=== PATIENT | male | born 1975 | race Caucasian/White ===

== ENCOUNTER 2021-04-30 09:00 | Emergency (ER) | payer BC, SELFPAY ==
[2021-04-30 09:07] VITALS: BP 154/98; PULSE 83; RESP 18; TEMP 36.1; O2SAT 97; BMI 32.1
[2021-04-30] MEDS: Fluorescein Sodium STRIP 1 STRIP EYE-BOTH (09:58)
[2021-04-30] MEDS: Tetracaine HCl/PF 0.5% Oph Sol 4 ML DROPS 2 DROP EYE-BOTH (09:58)
[2021-04-30] MEDS: Erythromycin Base 0.5% Oph Oin 1 GM TUBE 1 CM EYE-BOTH (09:59)
--- NOTE | 2021-04-30 10:48 | ED_ITS ---
HPI - Eye Problem General Chief complaint: Eye Problems Stated complaint: Metal in eye Time Seen by Provider: 04/30/21 09:53 Source: patient Mode of arrival: ambulatory Limitations: no limitations History of Present Illness chief complaint: foreign body Onset (ago): day(s) (3) Onset description: sudden Duration: constant Location: right eye Eye Symptoms: foreign body sensation Place: home Mechanism: occurred while hammering/grinding (Metal) Severity: mild If Pain, Quality: aching Context: trauma (While grinding metal at home) Associated symptoms: none Treatments Prior to Arrival: irrigated eye Related Data Patient tetanus UTD: Yes (In the last 3 years) Previous Rx's Medication Instructions Recorded erythromycin 5 mg/gram (0.5 %) eye 0.5 inch OPHTHALMIC (EYE) QID 7 04/30/21 ointment Days #3.5 g Allergies Allergy/AdvReac Type Severity Reaction Status Date / Time No Known Allergies Allergy Verified 04/30/21 09:10 [No Known Allergies*] Review of Systems Review of Systems: Constitutional : No fevers, no chills, No changes in activity, No lethargy, No recent prior head injury, No agitation, No increased fussiness ENT/Mouth : No Ear Pain, No Nasal discharge/drainage Eyes: + Vision changes/blurry/decreased vision, + Eye Pain/FB, + recent welding, No Swelling, No Redness, No Photophobia, no discharge, no drainage, no itching, no eyelid edema, no contact lens uses, no bleeding Cardiovascular : No Chest Pain, No SOB Respiratory : No Cough Gastrointestinal : No Nausea, No Vomiting, No abdominal Pain Genitourinary : No Dysuria, No Urinary Frequency, No Urinary Incontinence, No Urgency, No Flank Pain Musculoskeletal : No joint pain, No neck stiffness, No back pain/injury Skin : No lacerations Neuro : No unsteady gait, No Paresthesias, No Loss of Consciousness, No altered mental status, No dizziness, No Headache Denies past medical history of HIV, recent trauma, coagulopathy, recent spinal/ epidural procedure, new medication, URI symptoms, close contacts with similar symptoms, tick bite, or known CO2 exposure. Yes all other systems are reviewed and are negative PMFSH Past Medical History Attestation statement: The following information was validated with the patient. Medical History No known health problems Social History Social History Advance Directives: No Advance Directives Information Provided: Yes Physical Exam Vital Signs: Vital Signs: Last Vital Signs Temp 97.0 F 04/30/21 09:07 Pulse 83 04/30/21 09:07 Resp 18 04/30/21 09:07 BP 154/98 H 04/30/21 09:07 Pulse Ox 97 04/30/21 09:07 BMI result Body Mass Index 32.1 vital signs have been reviewed as normal and appeared to be correct. Blood pressure . Heart rate normal. Respiration rate normal. Temperature normal. Oxygen saturation normal. Appearance: Alert. Oriented X3. No acute distress. Head: Normal external exam. Normocephalic. Atraumatic. No Silverio signs noted. No raccoon eyes noted Eyes: PERRLA. EOMI. Conjunctiva are normal. pt noted to have a rust ring FB to right medial cornea. No additional FB's No drainage noted. Otherwise Cornea are otherwise normal. Funduscopic exam within normal limits. Sclera normal. Eyelids normal. No papilledema noted. Anterior chamber normal. No photophobia noted. ENT: EAC normal. TM's Normal. Pharynx normal. Uvula midline. Moist mucous membra vale. Neck: Normal inspection. Neck supple. FROM. No adenopathy. No meningeal signs. No neck mass noted. CVS: Normal heart rate and rhythm. Heart sound normal. No murmurs noted. Pulses normal throughout. Respiratory: No respiratory distress. Painless inspiration. Breath sounds normal. Back: Full range of motion noted. Skin: Skin warm and dry. Normal skin color. Normal skin turgor. No rashes /lesions/lacerations noted. Extremities: Extremities exhibit normal range of motion. Extremities nontender. Neuro: Oriented X 3. No motor deficit. No sensory deficit. Reflexes normal. Course Course Course Narrative: 46-year-old male presenting to the ED with complaints of piece of metal in his eye after he was grinding metal in his home on and since then he has been feeling like he has a foreign body and has had watery drainage. He reports that he is up-to-date on tetanus within the past 3 years he received it. He denies any other symptoms. He reports he was wearing shield. He denies wearing contact lenses. On exam he was noted to have a foreign body/rust ring to the right medial aspect of the cornea. It was visualized and removed with cotton swab/18 gauge needle. Patient tolerated procedure well. No complications. Complete removal. Erythromycin was applied. Instructed patient to follow-up with gastroenterology physician and to return if any new or worsening symptoms. MDM - Eye Problem Medical Records Attestation: I reviewed the patient's medical records. Procedures FB Removal Eye Time Out performed: Yes Location: eye (R) Topical anesthetic used: tetracaine Foreign body: metal Evidence of corneal penetration: No Technique: irrigation, cotton tip swab and needle Procedure performed under: direct visualization with magnification Post-procedure medication: ophthalmic antibiotic and topical anesthetic Patient tolerated procedure: well and no complications Complications: other (No complications) Discharge Plan Discharge Clinical Impression: Corneal rust ring of right eye, Foreign body in cornea, right eye, initial encounter Patient Disposition: Home, Self-Care Instructions: Eye Foreign Body (ED) Prescriptions: New erythromycin 5 mg/gram (0.5 %) ointment 0.5 inch ophthalmic (eye) QID 7 Days Qty: 3.5 RF: 0 Referrals: Michael Davis [Physician] - 2 days Print Language: [place] Islander
== END 2021-04-30 11:15 | disposition home or self-care (01) ==
PROVIDERS: Emergency Provider Internal Medicine
DX: T15.01XA Foreign body in cornea, right eye, initial encounter (principal); X58.XXXA Exposure to other specified factors, initial encounter; Y93.89 Activity, other specified; Y92.015 Private garage of single-family (private) house as the place of occurrence of the external cause; Y99.9 Unspecified external cause status
CPT/HCPCS: 65220; 99283; 99284

== ENCOUNTER 2021-08-17 19:03 | Emergency (ER) | payer BC, SELFPAY | END 2021-08-17 20:33 | disposition left against medical advice (07) | LOC: HO.ED 20:23 | PROVIDERS: Emergency Provider Emergency Medicine | DX: M79.671 Pain in right foot (principal) ==

== ENCOUNTER 2021-08-18 09:18 | Emergency (ER) | payer BC, SELFPAY ==
--- NOTE | ~2021-08-18 | XR_ITS ---
EXAMINATION: 1. RADIOGRAPHS RIGHT ANKLE 2. RADIOGRAPHS RIGHT FOOT CLINICAL INFORMATION: Pain and swelling COMPARISON: None TECHNIQUE: 3 views of the right ankle and 3 views of the right foot were obtained. FINDINGS: Visualized portion of the distal tibia and fibula demonstrate no fracture. Ankle mortise is maintained. No focal soft tissue swelling of the ankle. No gross ankle joint effusion. Bones of the midfoot are well aligned. No tarsal, metatarsal or phalangeal fracture. Tiny plantar calcaneal enthesophyte. No radiopaque foreign body. XR/XR ankle RT min 3V IMPRESSION: Unremarkable radiographs of the right ankle and foot.
--- NOTE | ~2021-08-18 | XR_ITS ---
EXAMINATION: 1. RADIOGRAPHS RIGHT ANKLE 2. RADIOGRAPHS RIGHT FOOT CLINICAL INFORMATION: Pain and swelling COMPARISON: None TECHNIQUE: 3 views of the right ankle and 3 views of the right foot were obtained. FINDINGS: Visualized portion of the distal tibia and fibula demonstrate no fracture. Ankle mortise is maintained. No focal soft tissue swelling of the ankle. No gross ankle joint effusion. Bones of the midfoot are well aligned. No tarsal, metatarsal or phalangeal fracture. Tiny plantar calcaneal enthesophyte. No radiopaque foreign body. XR/XR foot RT min 3V IMPRESSION: Unremarkable radiographs of the right ankle and foot.
[2021-08-18 09:38] VITALS: BP 128/62; PULSE 97; RESP 16; TEMP 36.7; O2SAT 98; BMI 32.5
--- NOTE | 2021-08-18 09:42 | ED_ITS ---
HPI - Extremity Injury (Lower) General Chief Complaint: Extremity Injury, Lower <Faiza ValenzuelaMOISES simental - Last Filed: 08/18/21 17:01> Stated Complaint: r ankle pain no known inj <Faiza Owusu MOISES Jacob - Last Filed: 08/18/21 17:01> Time Seen by Provider: 08/18/21 09:42 <Faiza Francoiseleah Jacob CNP - Last Filed: 08/18/21 17:01> Source: patient <Faiza JacobMOISES - Last Filed: 08/18/21 17:01> Mode of arrival: ambulatory <Faiza Owusu MOISES Jacob - Last Filed: 08/18/21 17:01> Limitations: no limitations <Faiza Owusu MOISES Jacob - Last Filed: 08/18/21 17:01> History of Present Illness HPI Narrative: Patient presents to the emergency department for evaluation of right ankle pain. Patient reports that 3 days ago when getting off of the couch she stepped down and felt a crack to his right ankle but thought nothing of it. 2 days ago he went to work, does a lot of walking, and began to notice some discomfort to his right ankle. Yesterday he was sent home from work as he was unable to bear much weight, was limping a lot. In having a lot of pain with weight-bearing. He presents to the emergency department today with crutches reporting worsening pain when weight-bearing, and swelling. He reports that he has broken this an kle/foot at least 3 times in the past. He states that there is no pain when he is not moving his ankle bearing weight. Denies numbness or tingling, redness, warmth, pain to the right calf or leg. He has been taking Aleve which she feels has been helping with the swelling in addition to elevation. <Faiza Owusu MOISES Jacob - Last Filed: 08/18/21 17:01> Related Data Home Medications: Previous Rx's Medication Instructions Recorded erythromycin 5 mg/gram (0.5 %) eye 0.5 inch OPHTHALMIC (EYE) QID 7 04/30/21 ointment Days #3.5 g <Faizasandra Jacob CNP - Last Filed: 08/18/21 17:01> Allergies/Adverse Reactions: Allergies Allergy/AdvReac Type Severity Reaction Status Date / Time No Known Allergies Allergy Verified 04/30/21 09:10 [No Known Allergies*] <Faiza Jacob CNP - Last Filed: 08/18/21 17:01> Review of Systems Review of Systems: Constitutional: No weight loss, fever, chills, weakness or fatigue. Skin: No rash or itching. Cardiovascular: No chest pain, chest pressure or chest discomfort. No palpitations or pedal edema. Respiratory: No shortness of breath, cough or sputum production. Musculoskeletal: Positive right ankle pain <Faiza Jacob CNP - Last Filed: 08/18/21 17:01> Yes all other systems are reviewed and are negative <Faiza Jacob CNP - Last Filed: 08/18/21 17:01> [facility] Past Medical History Attestation statement: The following information was validated with the patient. <Faiza Jacob CNP - Last Filed: 08/18/21 17:01> Source: old records reviewed <Faiza Jacob CNP - Last Filed: 08/18/21 17:01> Medical History: Medical History Cellulitis No known health problems <Faiza Jacob CNP - Last Filed: 08/18/21 17:01> Social History Social History: Social History Advance Directives: Yes Advance Directives Information Provided: Yes Advance Directives on File: No <Faiza Jacob CNP - Last Filed: 08/18/21 17:01> Physical Exam Vital Signs: Vital Signs: Last Vital Signs Temp 98.0 F 08/18/21 09:38 Pulse 97 08/18/21 09:38 Resp 16 08/18/21 09:38 BP 128/62 08/18/21 09:38 Pulse Ox 98 08/18/21 09:38 BMI result Body Mass Index 32.5 Vital signs have been reviewed as normal and appeared to be correct. Blood pressure normal.? Heart rate normal.? Respiration rate normal. Temperature normal.? Oxygen saturation normal. <Faiza Jacob CNP - Last Filed: 08/18/21 17:01> Appearance: Alert.?Oriented to person, place and time. No acute distress.?Normal affect. Eyes: Pupils equal, round and reactive to light.? ENT: Pharynx normal.?? Neck: Normal inspection.? Neck supple.?? CVS: Heart sounds normal. Normal heart rate and rhythm.? Pulses normal.?? Respiratory: No respiratory distress.? Lung sounds clear to auscultation bilaterally?? Abdomen: Right medial malleolus swelling greater than lateral malleolus swelling. Diffuse swelling to the right foot. Palpable 2+ DP/PT pulse. No erythema, warmth, tenderness with palpation. Decreased dorsiflexion and plantar flexion of the ankle reportedly due to pain. No calf ttp? Neuro: Moves all extremities spontaneously. Sensation intact bilaterally. CN II- XII intact. No focal neuro deficits. Ambulates with antalgic gait <Faiza Jacob CNP - Last Filed: 08/18/21 17:01> Course Course Course Narrative: Patient is a 46-year-old male with a past medical history of cellulitis to the right extremity presenting for evaluation of right ankle pain with weight-be aring and swelling without notable significant injury. Plan to obtain XR ankle and foot to evaluate for fracture or dislocation <Faiza Jacob CNP - Last Filed: 08/18/21 17:01> Reevaluation(s) Reevaluation #1: XR reveals no acute fracture dislocation to the right ankle or foot. Without notable injury or precipitating event, discussed plan with patient to obtain ultrasound of the lower extremity to exclude DVT, Well's score 1 given edema to the RLE, however patient declines having ultrasound done at this time. Discussed risks and potential complications of undiagnosed DVT including PE potentially life-threatening complications. Patient verbalizes understanding of this. History and physical exam consistent with cellulitis, septic arthritis, effusion. Pain with weight-bearing swelling maybe secondary to DVT, acute sprain, or possible arthritis. Will provide air cast for comfort, return to work note, advised RICE and NSAIDs, and follow-up with primary care provider within 1-3 days, discussed reasons to return back to emergency department, all questions were answered and patient discharged home. <Faiza Jacob CNP - Last Filed: 08/18/21 17:01> Time: 11:17 <Faiza Jacob MOISES - Last Filed: 08/18/21 17:01> MDM - Extremity Injury (Lower) Medical Records Attestation: I reviewed the patient's medical records. <Faiza JacobMOISES - Last Filed: 08/18/21 17:01> Imaging Data XR right ankle/foot: Radiologist's impression: FINDINGS: Visualized portion of the distal tibia and fibula demonstrate no fracture. Ankle mortise is maintained. No focal soft tissue swelling of the ankle. No gross ankle joint effusion. Bones of the midfoot are well aligned. No tarsal, metatarsal or phalangeal fracture. Tiny plantar calcaneal enthesophyte. No radiopaque foreign body.? XR/XR ankle RT min 3V IMPRESSION: Unremarkable radiographs of the right ankle and foot.? <Faiza ValenzuelaMOISES simental - Last Filed: 08/18/21 17:01> Discharge Plan Discharge Clinical Impression: Ankle pain, right <Faiza JacobMOISES - Last Filed: 08/18/21 17:01> Patient Disposition: Home, Self-Care <Faiza JacobMOISES - Last Filed: 08/18/21 17:01> Instructions: Arthralgia (ED), R.I.C.E. Treatment (ED) <Faiza ValenzuelaMOISES simental - Last Filed: 08/18/21 17:01> Additional Instructions: As we discussed it is unclear the exact cause of your ankle pain at this time. He was offered an ultrasound to check for a blood clot but you declined to have this done. You may use the Aircast as needed for comfort in addition to crutches. Please return to the emergency department with any new or worsening symptoms or concerns such as severe worsening pain/swelling, if you develop redness to the leg, chest pain, palpitations, shortness of breath, difficulty breathing, lightheadedness, dizziness. Please contact your primary care provider to schedule follow-up visit within 1-3 days. <Faiza Gilmoreleah Jacob CNP - Last Filed: 08/18/21 17:01> Prescriptions: No Action erythromycin 5 mg/gram (0.5 %) ointment 0.5 inch ophthalmic (eye) QID 7 Days Qty: 3.5 0RF <Faiza Jacob CNP - Last Filed: 08/18/21 17:01> Stand Alone Forms: Work/School Release <Faiza Jacob CNP - Last Filed: 08/18/21 17:01> Interventions: ED Discharge Assessment Last Done: 08/18/21 12:02 <Faiza Jacob CNP - Last Filed: 08/18/21 17:01> Discharge Date/Time: 08/18/21 12:04 <Faiza Jacob CNP - Last Filed: 08/18/21 17:01>
== END 2021-08-18 12:04 | disposition home or self-care (01) ==
PROVIDERS: Emergency Provider Emergency Medicine
DX: M25.571 Pain in right ankle and joints of right foot (principal); M79.671 Pain in right foot
CPT/HCPCS: 73610; 73630; 99283; 99284

== ENCOUNTER 2023-11-16 07:52 | Emergency (ER) | payer BC, SELFPAY ==
--- NOTE | ~2023-11-16 | XR_ITS ---
EXAMINATION: XR KNEE, LEFT CLINICAL INFORMATION: Pain and swelling COMPARISON: None available. TECHNIQUE: Four views of the left knee. FINDINGS: No fracture or dislocation. Moderate to large suprapatellar joint effusion. Joint spaces are maintained. No significant degenerative changes. No localized soft tissue swelling. No radiopaque foreign body. XR/XR knee LT 3V IMPRESSION: Moderate to large suprapatellar joint effusion. No fracture.
[2023-11-16 08:00] VITALS: BP 148/92; PULSE 105; RESP 18; TEMP 36.7; O2SAT 96; BMI 33.7
--- NOTE | 2023-11-16 09:38 | ED_ITS ---
HPI - Extremity Injury (Lower) General Chief Complaint: Extremity Injury, Lower Stated Complaint: L knee pain, no injury Time Seen by Provider: 11/16/23 09:05 Source: patient Mode of arrival: ambulatory Limitations: no limitations History of Present Illness ED Provider: Jasmyne Fraser APRN HPI Narrative: This is 48-year-old male who has no known medical history however he has not seen a doctor in more than 8 years who presents the ER with complaints of left knee pain and swelling since yesterday with waking. He denies any known injury or trauma. Patient reports that he has had history of swollen and painful joints in the past which have resolved without intervention. Has been taking naproxen and applying ice as well as using crutches. He denies any warmth, redness, fevers or chills. Related Data Previous Rx's ?Medication ?Instructions ?Recorded erythromycin 5 mg/gram (0.5 %) eye 0.5 inch ophthalmic (eye) QID 04/30/21 ointment Bacterial conjunctivitis 7 days #3.5 grams allopurinol 100 mg tablet 100 mg PO DAILY #30 tabs 11/16/23 prednisone 20 mg tablet 40 mg (2 x 20 mg) PO DAILY #10 tabs 11/16/23 Allergies Allergy/AdvReac Type Severity Reaction Status Date / Time No Known Allergies Allergy Verified 11/16/23 08:04 [No Known Allergies*] Review of Systems 2 Review of Systems: Yes all other systems are reviewed and are negative Constitutional: Constitutional: Reports no additional constitutional complaints, Denies body ache(s), Denies chills, Denies fever(s), Denies headache(s) and Denies weakness Eyes: Eyes: Reports no additional eye complaints and Denies change in vision ENT: Reports system reviewed and no additional complaints, except as documented, Denies dizziness, Denies headache(s), Denies nasal congestion, Denies nasal discharge and Denies neck pain Cardiovascular: Cardiovascular: Reports no additional cardiovascular complaints, Denies chest pain, Denies leg edema and Denies dyspnea Respiratory: Respiratory: Reports no additional respiratory complaints, Denies cough and Denies dyspnea Gastrointestinal: Gastrointestinal: Reports no additional gastrointestinal complaints, Denies abdominal pain, Denies diarrhea, Denies nausea and Denies vomiting Genitourinary: Genitourinary: Denies urinary incontinence Musculoskeletal: Musculoskeletal: Reports no additional musculoskeletal complaints, Denies back pain, Reports arthralgias, Reports joint swelling, Reports limited range of motion, Denies neck pain, Denies numbness and Denies tingling Integumentary/Breasts: Skin/Breast: Reports system reviewed and no additional complaints, except as docu and Denies rash Neurologic: Reports system reviewed and no additional complaints, except as documented, Denies Abnormal speech present, Denies dizziness, Denies headache(s), Denies numbness, Denies tingling and Denies weakness PMFSH Past Medical History Attestation statement: The following information was validated with the patient. Source: old records reviewed and nursing notes reviewed Medical History Cellulitis No known health problems Social History Social History Advance Directives: No Advance Directives Information Provided: No Do you have a plan to hurt others: No Plan Physical Exam 2 Vital Signs: Vital Signs: Last Vital Signs Temp 98.7 F 11/16/23 12:41 Pulse 77 11/16/23 12:41 Resp 17 11/16/23 12:41 BP 133/91 H 11/16/23 12:41 Pulse Ox 95 11/16/23 12:41 O2 Del Method Room Air 11/16/23 12:41 BMI result Body Mass Index 33.7 Const: General: cooperative, healthy appearing, comfortable and no acute distress Orientation/consciousness: patient oriented x3 Limitations: no limitations HEENT: Head: Yes normal to inspection Ears: hearing grossly normal bilaterally General nose exam: Normal external nose present Face and sinus: Yes normal facial exam Mouth: Normal oral and palatal mucosa present Throat: Yes posterior oropharynx normal Eyes: General: appearance normal, both eyes and all related structures P upils: Equal, round and reactive pupils present Neck: Neck: Yes normal visual inspection Chest: Chest palpation & inspection: normal inspection of the chest Resp: Effort & Inspection: normal respiratory effort Auscultation: clear to auscultation bilaterally Cardio: Rate: regular rate Rhythm: regular rhythm Peripheral pulses: P eripheral pulses 2+ throughout GI: Inspection: Yes normal to inspection Palpation (GI): Soft to palpation and nontender Auscultation: normal bowel sounds Back/Spine/Pelvis: Thoracic/Lumbar Spine: thoracic and lumbar spine normal to inspection Skin: General skin exam: no rashes or lesions noted Neuro: General: patient oriented x3, no focal motor deficits and normal sensation to monofilament Cranial nerves: Yes Equal, round and reactive pupils present Cognition (Neuro): normal cognition Speech: No Abnormal speech present Gait exam (Neuro): Normal gait present Motor exam (neuro): 5/5 motor strength present throughout Extrem: Other: Left knee is moderately swollen, held in partial extension. Unable to full extend the knee. Able to flex the knee. There is NO warmth or redness. Tenderness diffusely over knee anteriorly and posteriorly. No calf pain or swelling. 2+ DP/PT pulses. Normal distal sensation. Course Course Course Narrative: Patient has leukocytosis of 13,000 and a CRP of 14. His synovial some WBC is 99.96 and his neutrophils are 97 and so it may be that he has an infected joint however this can also be seen in gout. His Gram stain and crystals are pending. I will involve Orthopedics Reevaluation(s) Reevaluation #1: 1230-patient has 2+ interested your monosodium urate crystals. No organisms seen on Gram stain. His culture is pending. Likely gout flare. Patient will be treated with prednisone course and NSAIDs at home. I reviewed worrisome signs and symptoms with him and when to return to the emergency room. He is comfortable plan of care. He will work on establishing a primary care doctor as he likely will need to follow-up with them. Medications Administered Discontinued Medications Generic Name Dose Route Start Last Admin Trade Name Lon PRN Reason Stop Dose Admin Lidocaine HCl 2 ml 11/16/23 09:47 11/16/23 10:28 Lidocaine Hcl 1 % Mpf 2 Ml Vial INFILTRATI 11/16/23 09:48 2 ml ONCE ONE Administration Lidocaine HCl 2 ml 11/16/23 09:47 11/16/23 10:28 Lidocaine Hcl 1 % Mpf 2 Ml Vial INFILTRATI 11/16/23 09:48 2 ml ONCE ONE Administration Medical Decision Making Medical Decision Making MDM Narrative: This is 48-year-old male who has no known medical history however he has not seen a doctor in more than 8 years who presents the ER with complaints of left knee pain and swelling since yesterday with waking. He denies any known injury or trauma. Patient reports that he has had history of swollen and painful joints in the past which have resolved without intervention. Has been taking naproxen and applying ice as well as using crutches. He denies any warmth, redness, fevers or chills. Left knee is moderately swollen, held in partial extension. Unable to full extend the knee. Able to flex the knee. There is NO warmth or redness. Tenderness diffusely over knee anteriorly and posteriorly. No calf pain or swelling. 2+ DP/PT pulses. Normal distal sensation. Will obtain x-ray, labs, perform arthrocentesis Differential Diagnosis Differential Diagnoses: The differential diagnosis associated with the presentation includes Gout, septic joint, arthritis Low suspician for DVT Admission/Observation Consideration of admission/observation: Escalation of care including admission/observation considered See course of care Consult Healthcare Provider Management of the patient was discussed with: Supervisor Glycerin I reviewed the case with Orthopedics on-call (Kanika MCBRIDE)-likely gout Lab Data MDM Lab Attestation statement: I reviewed the patient's lab results. 11/16/23 10:52 11/16/23 10:51 Labs: Lab Results 11/16/23 11/16/23 11/16/23 Range/Units 10:44 10:51 10:52 WBC 13.0 H (4.8-10.8) X10*3/uL RBC 4.52 L (4.60-5.80) X10*6/uL Hgb 14.4 (14.0-18.0) g/dl Hct 41.0 L (42.0-52.0) % MCV 90.7 (80.0-98.0) fL MCH 31.9 (27.0-33.0) pg MCHC 35.1 (31.0-36.0) g/dl RDW 12.0 (11.0-16.0) % Plt Count 174 (160-400) X10*3/uL MPV 10.6 (9.4-12.4) fL Immature Gran % (Auto) 0.4 (0.0-0.4) % Neut % (Auto) 65.6 (45-73) % Lymph % (Auto) 19.9 L (20-40) % [place] % (Auto) 13.7 H (2-11) % Eos % (Auto) 0.2 (0-4) % Baso % (Auto) 0.2 (0-2) % Lymph # (Auto) 2.6 (1.2-4.9) X10*3/uL [place] # (Auto) 1.8 H (0.1-1.2) X10*3/uL Eos # (Auto) 0.0 (0.0-0.4) X10*3/uL Baso # (Auto) 0.0 (0.0-0.2) X10*3/uL Abs Immat Gran (auto) 0.05 H (0.00-0.03) X10*3/uL Absolute Neuts (auto) 8.5 H (2.0-8.3) x10*3/uL Absolute Nucleated RBC 0.000 (0.0-0.012) X10*3/uL Nucleated RBC % (auto) 0.0 (0.0-0.2) /100WBC Smear Tech's Comments VERIFIED ESR 12 (0-15) MM/HR Sodium 140 (135-145) mmol/L Potassium 4.0 (3.3-5.1) mmol/L Chloride 106 (96-108) mmol/L Carbon Dioxide 24 (22-29) mmol/L Anion Gap 14 (12-20) BUN 8 L (9-16) mg/dL Creatinine 0.81 (0.5-1.4) mg/dL Estim Creat Clear Calc 111.0 Estimated GFR > 60 Random Glucose 125 H (60-115) mg/dL Uric Acid 9.5 H (3.4-7.0) mg/dL Calcium 9.6 (8.4-10.2) mg/dL C-Reactive Protein 14.26 H (< or = 0.50) mg/dL Synovial Source knee Synovial WBC 99.960 X10*3/uL Synovial RBC 0.002 X10*6/uL Synovial Neutrophils 97 % Synovial Lymphocytes 1 % Synovial Monocytes 2 % Independent Interpretation I performed an independent interpretation of an: Plain X-Ray Interpretation: I independently reviewed the x-ray and agree with rad report Radiology Impression Discussion of test interpretation with radiology: I have reviewed the radiologist's reading. Radiologist Impression: [address] [address] XRay Report Signed Patient: Paddy Shelby MR#: [id number] : 1975 Acct:[id number] Age/Sex: 48 / M ADM Date: 11/16/23 Loc: HO.ED Attending Dr: Ordering Physician: Jasmyne Skinner NP Date of Service: 11/16/23 Procedure(s): XR knee LT 3V Accession Number(s): [id number] cc: Physician,None ; Jasmyne Skinner NP~ EXAMINATION: XR KNEE, LEFT CLINICAL INFORMATION: Pain and swelling COMPARISON: None available. TECHNIQUE: Four views of the left knee. FINDINGS: No fracture or dislocation. Moderate to large suprapatellar joint effusion. Joint spaces are maintained. No significant degenerative changes. No localized soft tissue swelling. No radiopaque foreign body. XR/XR knee LT 3V IMPRESSION: Moderate to large suprapatellar joint effusion. No fracture. Prescription Management I considered prescription management with: Antibiotic Procedures Joint Aspiration/Injection Joint Asp./Inject. 1: Time Out Performed: Yes Side of body: left Joint Aspirated: knee Ultrasound Guidance: No Skin Prep: sterile prep and drape Local Anesthetic: lidocaine 1% Amount of anesthesia used (mL): 3 Needle Size Used: 18G Fluid Obtained: turbid Total fluid obtained (mL): 40 Patient Tolerated Procedure: well Complications: none Critical Care Time Critical Care Time Critical Care Time: Yes Total Critical Care Time: 45 Attestation: Patient required arthrocentesis, discussion with Orthopedics Discharge Plan Discharge Clinical Impression: Gout Patient Disposition: Home, Self-Care Instructions: Low Purine Diet (ED), Gout (ED) Additional Instructions: Use the hamilton wrap and crutches Ice to the area Take prednisone as prescribed. You may also take [id number] anti- inflammatory medication like ibuprofen or naproxen. Make sure that you take these with food. Start taking the allopurinol after this gout flare is resolved You need to establish a primary care doctor. Please return for fever, redness, change in symptoms as discussed Prescriptions: New allopurinol 100 mg tablet 100 mg PO DAILY Qty: 30 0RF prednisone 20 mg tablet 40 mg PO DAILY Qty: 10 0RF No Action erythromycin 5 mg/gram (0.5 %) ointment 0.5 inch ophthalmic (eye) QID 7 Days Qty: 3.5 0RF Interventions: ED Discharge Assessment Last Done: 11/16/23 12:41 Discharge Date/Time: 11/16/23 12:41 Print Language: Botswanan
[2023-11-16] MEDS: Lidocaine HCl 1 % MPF 2 ML VIAL INFILTRATI ×2 (10:28)
[2023-11-16 10:51] LABS: Source Synovial Fluid knee
[2023-11-16 10:59] LABS: Basophils Percent Auto 0.2 % (0-2); Eosinophils Percent Auto 0.2 % (0-4); Hemoglobin 14.4 g/dl (14.0-18.0); Imm Gran Abs Auto 0.05 X10*3/uL (0.00-0.03); Imm Gran Pct Auto 0.4 % (0.0-0.4); Lymphocytes Absolute Auto 2.6 X10*3/uL (1.2-4.9); Lymphocytes Percent Auto 19.9 % (20-40); MANUAL DIFF FLAG SCAN; Mean Corpuscular HGB Conc 35.1 g/dl (31.0-36.0); Mean Corpuscular Hemoglobin 31.9 pg (27.0-33.0); Mean Corpuscular Volume 90.7 fL (80.0-98.0); Mean Platelet Volume 10.6 fL (9.4-12.4); Monocytes Absolute Auto 1.8 X10*3/uL (0.1-1.2); Monocytes Percent Auto 13.7 % (2-11); Neutrophils Absolute Auto 8.5 x10*3/uL (2.0-8.3); Neutrophils Percent Auto 65.6 % (45-73); Platelet Count 174 X10*3/uL (160-400); Red Blood Count 4.52 X10*6/uL (4.60-5.80); SCAN SMEAR FLAG 1
[2023-11-16 11:10] LABS: MN% 5.9 %; PMN% 94.1 %; RBC Synovial Fluid 0.002 X10*6/uL
[2023-11-16 11:15] LABS: Anion Gap 14 (12-20); Blood Urea Nitrogen 8 mg/dL (9-16); C Reactive Protein 14.26 mg/dL (< or = 0.50); Calcium 9.6 mg/dL (8.4-10.2); Carbon Dioxide 24 mmol/L (22-29); Chloride 106 mmol/L (96-108); Estimated Glomerular Filt Rate > 60; Glucose Random 125 mg/dL (60-115); Sodium 140 mmol/L (135-145); Uric Acid 9.5 mg/dL (3.4-7.0)
[2023-11-16 11:19] LABS: SLIDE REVIEW VERIFIED
[2023-11-16 11:26] VITALS: BP 133/91; PULSE 77; RESP 17; TEMP 37.1; O2SAT 95
[2023-11-16 11:27] LABS: BF Shift QC OK YES; Man Diluent Bkgrd OK YES; Monocytes Synovial Fluid 2 %
[2023-11-16 11:28] LABS: Lymphocytes Synovial Fluid 1 %; Neutrophils Synovial Fluid 97 %
[2023-11-16 11:43] LABS: Erythrocyte Sedimentation Rate 12 MM/HR (0-15)
[2023-11-16 12:41] VITALS: BP 133/91; PULSE 77; RESP 17; TEMP 37.1; O2SAT 95
[2023-11-18 08:42] LABS: Glucose Synovial Fluid 29
[2023-11-18 08:43] LABS: Total Protein Synovial Fluid 4.8
== END 2023-11-16 12:41 | disposition home or self-care (01) ==
PROVIDERS: Nurse Practitioner Family; Emergency Provider Emergency Medicine
DX: M10.9 Gout, unspecified (principal); M25.462 Effusion, left knee; M25.562 Pain in left knee
CPT/HCPCS: 20610; 36415; 73562; 80048; 82945; 84157; 84550; 85025; 85652; 86140; 87070; 87073; 87205; 89051; 89060; 99284; 99285

== ENCOUNTER 2023-12-26 11:31 | Emergency (ER) | payer BC, SELFPAY ==
[2023-12-26 11:40] VITALS: BP 151/104; PULSE 90; RESP 18; TEMP 36.6; O2SAT 97; BMI 34.4
--- NOTE | 2023-12-26 11:40 | ED_ITS ---
HPI - Extremity Problem General Chief complaint: Extremity Injury, Lower Stated complaint: l knee pain-swelling Time Seen by Provider: 12/26/23 11:53 Source: patient Mode of arrival: ambulatory Limitations: no limitations History of Present Illness ED Provider: Pito Carrillo PA-C HPI Narrative: 48 yo male with history of recently diagnosed left knee pain s/p treatment with prednisone, now on allopurinol who presents to the ER for evaluation of worsening left knee pain that started at 3am. He was seen here on 11/15 and had an arthrocentesis, had positive monosodium urate crystal and a negative culture. He was treated with 4 days of prednisone with some improvement but not full resolution of the pain. 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 Yesterday it started to get more sore than usual. Extreme pain with ROM and weight bearing today. Knee is hot but not red. No fevers. No recent injury. He has been on allopurinol at increased dose due to ongoing elevated uric acid levels in his blood per his PCP. MD Complaint: joint swelling and joint pain Onset (ago): hour(s) Pain Consistency: constant Location: left and knee Severity scale (1-10): 10 Radiation: none Relieving factors: immobilization and rest Exacerbating factors: range of motion, weight bearing and walking Associated symptoms: denies other symptoms Related Data Previous Rx's ?Medication ?Instructions ?Recorded erythromycin 5 mg/gram (0.5 %) eye 0.5 inch ophthalmic (eye) QID 04/30/21 ointment Bacterial conjunctivitis 7 days #3.5 grams allopurinol 100 mg tablet 100 mg PO DAILY #30 tabs 11/16/23 prednisone 20 mg tablet 40 mg (2 x 20 mg) PO DAILY #10 tabs 11/16/23 prednisone 10 mg tablets in a dose See Taper PO DAILY #30 ea 12/26/23 pack Allergies Allergy/AdvReac Type Severity Reaction Status Date / Time No Known Allergies Allergy Verified 12/26/23 11:44 [No Known Allergies*] Review of Systems Review of Systems: Yes all other systems are reviewed and are negative PMFSH Past Medical History Medical History Cellulitis No known health problems Social History Social History Advance Directives: No Do you have a plan to hurt others: No Plan Physical Exam Vital Signs: Vital Signs: Last Vital Signs Temp 97.8 F 12/26/23 11:59 Pulse 90 12/26/23 11:59 Resp 18 12/26/23 11:59 BP 151/104 H 12/26/23 11:59 Pulse Ox 97 12/26/23 11:59 O2 Del Method Room Air 12/26/23 11:59 BMI result Body Mass Index 34.4 Appearance: Alert. Oriented X3. No acute distress. HEENT: normal inspection CVS: Normal heart rate and rhythm. Pulses normal. Respiratory: No respiratory distress. Skin: Skin warm and dry. Normal skin color. Normal skin turgor. No rashes. Extremities: left knee swelling in the suprapatellar region w/ palpable effusion, left knee is warm bnut not erythemtaous, nontender. very limited ROM and unable to bear weight. nontender popliteal area and left calf. Neuro: Oriented X 3. No motor deficit. No sensory deficit. Medications Administered Discontinued Medications Generic Name Dose Route Start Last Admin Trade Name Freq PRN Reason Stop Dose Admin Ketorolac Tromethamine 30 mg 12/26/23 11:48 12/26/23 11:53 Ketorolac Tromethamine 30 Mg/Ml Vial IM 12/26/23 11:49 30 mg ONCE ONE Administration Prednisone 60 mg 12/26/23 11:48 12/26/23 11:52 Prednisone 20 Mg Tablet PO 12/26/23 11:49 60 mg ONCE ONE Administration Medical Decision Making Medical Decision Making MDM Narrative: 48 yo male with confirmed gout on arthrocentesis on 11/15 presenting with recurrent severe left knee pain and swelling, unable to bear weight since today no recent injury. no need for repeat imaging today. exam with swelling and warmth, no erythema. doubt acute septic joint. no role for repeat arthrocentesis given risk of infection with repeated taps. will start on prednisone with a tapering dose. will refer to ortho and he will see his PCP in the next 2 weeks. stable for d/c home Differential Diagnosis Differential Diagnoses: The differential diagnosis associated with the presentation includes gout, septic joint, AO, RA External Record Review External record reviewed: Outpatient record, Prior outpatient labs and Prior outpatient radiology Tests considered The following testing was considered but not selected: xr knee considered Prescription Management I considered prescription management with: Pain Medication and Antibiotic Chronic Conditions Patient?s care impacted by: Other (gout) Critical Care Time Critical Care Time Critical Care Time: No Discharge Plan Discharge Clinical Impression: Gout Qualifiers: Gout site: knee Gout etiology: unspecified cause Chronicity: acute Laterality: left Qualified Code(s): M10.9 - Gout, unspecified Patient Disposition: Home, Self-Care Instructions: Low Purine Diet (ED), Gout (ED) Additional Instructions: take the prescribed prednisone taper starting tomorrow follow up with your doctor recommend following up with orthopedics as well - call for an appointment. If you develop new or worsening symptoms call 911 or come back to the ER for further evaluation. Prescriptions: New prednisone 10 mg tablets,dose pack See Taper PO DAILY Qty: 30 0RF Taper: Prednisone 40 mg daily for 3 Days and 0 Hour 30 mg daily for 3 Days and 0 Hour 20 mg daily for 3 Days and 0 Hour 10 mg daily for 3 Days and 0 Hour Rx Instructions: 40 mg Daily x3 days, 30 mg daily x3 days, 20 mg daily x3 days, 10 mg daily x3 days No Action erythromycin 5 mg/gram (0.5 %) ointment 0.5 inch ophthalmic (eye) QID 7 Days Qty: 3.5 0RF allopurinol 100 mg tablet 100 mg PO DAILY Qty: 30 0RF prednisone 20 mg tablet 40 mg PO DAILY Qty: 10 0RF Referrals: [facility] [place] [facility] [place] [facility] [Provider Group] (recurrent left knee gout) Percy Gayle MD [Primary Care Provider] - Stand Alone Forms: Work/School Release Interventions: ED Discharge Assessment Last Done: 12/26/23 11:59 Discharge Date/Time: 12/26/23 12:00 Print Language: Jordanian
[2023-12-26] MEDS: predniSONE 20 MG TABLET 60 MG PO (11:52)
[2023-12-26] MEDS: Ketorolac Tromethamine 30 MG/ML VIAL IM (11:53)
[2023-12-26 11:59] VITALS: BP 151/104; PULSE 90; RESP 18; TEMP 36.6; O2SAT 97
== END 2023-12-26 12:00 | disposition home or self-care (01) ==
PROVIDERS: Emergency Provider Emergency Medicine; PCP Internal Medicine
DX: M10.9 Gout, unspecified (principal); M25.562 Pain in left knee
CPT/HCPCS: 96372; 99283; 99284; J1885

== ENCOUNTER 2024-06-17 10:10 | Outpatient (REF) | payer BC, SELFPAY ==
--- NOTE | ~2024-06-17 | XR_ITS ---
EXAMINATION: XR KNEE, RIGHT CLINICAL INFORMATION: PAIN,SWELLING, COMPARISON: None available. TECHNIQUE: Four views of the right knee. FINDINGS: No fracture, dislocation, or suspicious bone lesion. Normal bone mineralization. Normal alignment. There is mild tricompartmental osteoarthritis without significant medial or lateral joint space loss. Marginal osteophytic spurring. There is mild lateral facet patellofemoral joint space loss. Normal trochlear depth. There is a large suprapatellar joint effusion present. Soft tissues appear normal. XR/XR knee RT 4V IMPRESSION: 1. No acute bony abnormalities. 2. Very mild osteoarthritis most significant lateral femoral compartment. 3. Large joint effusion present. Electronically signed by: Pranay Hadley MD 06/17/2024 02:49 PM MONICA CALLAHAN
== END 2024-06-17 10:11 | disposition home or self-care (01) ==
LOC: HO.XRAY 10:10
PROVIDERS: PCP Internal Medicine; Visit Provider Internal Medicine
DX: M25.561 Pain in right knee (principal)
CPT/HCPCS: 73564

== ENCOUNTER → 2024-06-17 10:20 | Outpatient (BNV) | payer BC, SELFPAY | PROVIDERS: PCP Internal Medicine; Visit Provider Radiology Diagnostic Radiology | DX: M25.561 Pain in right knee (principal) | CPT/HCPCS: 73564 ==

== ENCOUNTER 2024-07-27 16:07 | Outpatient (REF) | payer BC, SELFPAY ==
[2024-07-27 17:03] LABS: C Reactive Protein 0.69 mg/dL (< or = 0.50); Uric Acid 4.7 mg/dL (3.4-7.0)
[2024-07-27 17:11] LABS: Erythrocyte Sedimentation Rate 12 MM/HR (0-15)
== END 2024-07-27 16:08 | disposition home or self-care (01) ==
LOC: HO.LAB 16:07
PROVIDERS: PCP Internal Medicine; Visit Provider Internal Medicine
DX: R53.83 Other fatigue (principal)
CPT/HCPCS: 36415; 84550; 85652; 86140

== ENCOUNTER 2024-07-28 15:59 | Outpatient (REF) | payer BC, SELFPAY ==
--- NOTE | ~2024-07-28 | XR_ITS ---
CLINICAL HISTORY: PAIN AND SWELLING Four views of the right knee. COMPARISON: None FINDINGS: No suprapatellar joint effusion. Joint spaces are maintained. Tiny osteophytes present along the patellofemoral compartment. Visualized portions of the distal femur, patella, and proximal tibia and fibula appear intact. IMPRESSION: 1. No radiographic evidence of acute injury to the right knee. 2. Mild patellofemoral degenerative changes. This document has been electronically signed by: Jef Oakley MD on 07/29/2024 12:50:18
--- NOTE | ~2024-07-28 | XR_ITS ---
CLINICAL HISTORY: PAIN AND SWELLING Four views of the right ankle. COMPARISON: None FINDINGS: No ankle joint effusion. Soft tissue swelling overlying the ankle. Small plantar calcaneal spur present. Ankle mortise appears symmetric on non-stressed views. Talar dome appears intact. Distal tibia and fibula appear intact. Visualized tarsal bones appear intact. IMPRESSION: 1. Soft tissue swelling overlying the right ankle. Underlying bones appear intact. 2. Small plantar calcaneal spur. This document has been electronically signed by: Jef Oakley MD on 07/29/2024 12:50:06
== END 2024-07-28 16:00 | disposition home or self-care (01) ==
LOC: HO.XRAY 15:59
PROVIDERS: PCP Internal Medicine; Visit Provider Internal Medicine
DX: M25.551 Pain in right hip (principal); M25.571 Pain in right ankle and joints of right foot
CPT/HCPCS: 73562; 73610

== ENCOUNTER → 2024-07-28 16:03 | Outpatient (BNV) | payer BC, SELFPAY | PROVIDERS: PCP Internal Medicine; Visit Provider Radiology Diagnostic Radiology | DX: M25.561 Pain in right knee (principal); M77.31 Calcaneal spur, right foot; R22.41 Localized swelling, mass and lump, right lower limb | CPT/HCPCS: 73562; 73610 ==

== ENCOUNTER 2024-09-12 07:41 | Outpatient (REF) | payer BC, SELFPAY ==
[2024-09-12 09:04] LABS: C Reactive Protein 0.23 mg/dL (< or = 0.50)
[2024-09-12 09:21] LABS: Uric Acid 4.6 mg/dL (3.4-7.0)
== END 2024-09-12 07:42 | disposition home or self-care (01) ==
LOC: HO.LAB 07:41
PROVIDERS: PCP Internal Medicine; Visit Provider Internal Medicine
DX: M10.9 Gout, unspecified (principal); R53.83 Other fatigue
CPT/HCPCS: 36415; 84550; 86140

== ENCOUNTER 2024-09-30 14:54 | Outpatient (AMB) | payer BC, SELFPAY ==
[2024-09-30 14:56] VITALS: BMI 33.7
--- NOTE | 2024-09-30 14:56 | MHC.OFFVIS ---
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 The patient describes his pains as sharp in nature. The patient states that last year he had acute onset of left knee pain. Fluid was drained from his left knee. The g stain did show uric acid crystals consistent with gout. Since that time he has been treated with allopurinol. At this time his right knee pain is greater than is his left. Most of the pain is along the medial aspect of his knee. He has tried to leave and Tylenol which gave him minimal relief. The patient states that he has been told that his right knee pain is due to ?osteoarthritis?. Allergies No Known Allergies [No Known Allergies*] Allergy (Verified 09/30/24 14:57) Medication List - Last Reconciled 09/30/24 by José Manuel Soto MD allopurinol 100 mg PO DAILY [facility] Medical History Cellulitis No known health problems Physical Exam Vital Signs: BMI result Body Mass Index 33.7 Const Other: Well-nourished well-developed very friendly male awake alert and oriented x3 in no acute distress Extrem Other: Bilateral knee examination shows minimal effusions, mild crepitus with range of motion, tenderness along his medial joint lines, positive John's test, no instability Results Reviewed Results Reviewed: X-rays of the patient's bilateral knee show mild diffuse joint space narrowing, no acute bony abnormalities Assessment & Plan Assessment & Plan (1) Joint pain: Code(s): M25.50 - Pain in unspecified joint Category: Medical (2) Tear of medial meniscus of right knee: Code(s): S83.241A - Other tear of medial meniscus, current injury, right knee, initial encounter Category: Medical Plan Mr. Shelby presents with bilateral knee pains, right greater than left, possibly due to medial meniscus tearing. Thus, I will send the patient for an MRI of his right knee for further evaluation. I will also send him for blood work to help rule out an inflammatory process or Lyme disease. I will see him back once the MRI is completed. Feel free to call me at any time should questions regarding his orthopedic management arise. I spent 21 minutes in reviewing the patient's records and imaging studies, seeing the patient and documenting in the medical record. Orders: Orders Rheumatoid Factor Today M25.50 - Pain in unspecified joint NOLAN Reflex Titer and Pattern Today M25.50 - Pain in unspecified joint Lyme IgG/IgM w/reflex to WB Today M25.50 - Pain in unspecified joint MR knee RT wo con Today S83.241A - Other tear of medial meniscus, current injury, right knee, initial encounter Medications: Discontinued erythromycin Discontinued Reason: Patient Completed Course 0.5 inches ophthalmic (eye) QID 7 days 3.5 grams 0RF Bacterial conjunctivitis prednisone 40 mg Daily x3 days, 30 mg daily x3 days, 20 mg daily x3 days, 10 mg daily x3 days Discontinued Reason: Patient Completed Course See Taper PO DAILY 30 ea 0RF prednisone Discontinued Reason: Patient Completed Course 40 mg (2 x 20 mg) PO DAILY 10 tabs 0RF Coding Level of Care Code New Pt Level 3 (19695) Complex EM visit Add On G2211 Diagnoses Joint pain M25.50 Tear of medial meniscus of right knee S83.241A
== END 2024-09-30 15:17 | disposition home or self-care (01) ==
LOC: HO.HOS 14:55
PROVIDERS: PCP Internal Medicine; Visit Provider Orthopaedic Surgery
DX: M25.59 Pain in other specified joint (principal); S83.241A Other tear of medial meniscus, current injury, right knee, initial encounter
CPT/HCPCS: 99204

== ENCOUNTER → 2024-09-30 14:54 | Outpatient (BNVA) | payer BC, SELFPAY | PROVIDERS: PCP Internal Medicine; Visit Provider Orthopaedic Surgery ==

== ENCOUNTER → 2024-10-26 08:56 | Outpatient (BNV) | payer BC, SELFPAY | PROVIDERS: PCP Internal Medicine; Visit Provider Radiology Diagnostic Radiology | DX: M25.561 Pain in right knee (principal) | CPT/HCPCS: 73721 ==

== ENCOUNTER 2024-10-26 08:59 | Outpatient (REF) | payer BC, SELFPAY ==
--- NOTE | ~2024-10-26 | XR_ITS ---
EXAMINATION: XR SCREENING FILM FOR MR HISTORY: PRE MRI, HX METAL IN EYES COMPARISON: There are no prior studies available for comparison. FINDINGS: Three views of the orbits demonstrate no radiopaque foreign body. The visualized paranasal sinuses are clear. XR/XR pre mri screening IMPRESSION: No radiopaque foreign body is identified. Electronically signed by: Paddy Augustine MD 10/26/2024 09:36 AM EDT RP
--- NOTE | ~2024-10-26 | MR_ITS ---
EXAM: MRI LOWER EXTREMITY JOINT, KNEE, right TECHNIQUE: Multiplanar multisequence MR imaging performed through the right knee without contrast. INDICATION: Pain for one year, difficulty with range of motion, feels disconnected PRIOR: X-ray July 28, 2024 FINDINGS: Menisci: Lateral Meniscus: There is globular intermediate signal in the posterior horn of the lateral meniscus extending to the femoral surface that probably represents a tear. Medial Meniscus: Medial meniscus is intact. ACL/PCL: ACL is intact. PCL is intact. Extensor mechanism: There is no joint effusion. There is no fat pad edema. Tendons are intact. MCL/LCL: MCL is intact. LCL complex is intact. Articular cartilage: Patellofemoral Compartment: Patellar and trochlear cartilage is intact. Lateral Compartment: Articular cartilage is intact. Medial Compartment: Articular cartilage is intact. Bones/Marrow: Minimal reactive marrow signal changes present in the central tibia. A benign bone island is present in the posterior medial tibial plateau. Soft tissues: There is a small Parker's cyst. MR/MR knee RT wo con IMPRESSION: Intermediate amorphous signal in the posterior horn lateral meniscus extends to the femoral surface and probably represents a tear. Electronically signed by: Modesto Wheeler MD 10/26/2024 10:44 AM EDT
== END 2024-10-26 09:00 | disposition home or self-care (01) ==
LOC: HO.MRI 08:59
PROVIDERS: PCP Internal Medicine; Visit Provider Orthopaedic Surgery
DX: S83.241A Other tear of medial meniscus, current injury, right knee, initial encounter (principal)
CPT/HCPCS: 73721